=== PATIENT | female | born 1975 | race Caucasian/White ===

== ENCOUNTER 2017-08-18 08:41 | Emergency (ER) | payer OTHER ==
[2017-08-18] MEDS: PERCOCET 5MG/325MG TAB PO (09:33)
[2017-08-18] MEDS: ONDANSETRON 4 MG ORAL DISINTEGRATING TAB (Q0162 PER 1MG) PO (09:38)
== END 2017-08-18 10:19 | disposition home or self-care (01) ==
LOC: M ED 08:41
DX: S02.2XXA Fracture of nasal bones, initial encounter for closed fracture (principal); S01.511A Laceration without foreign body of lip, initial encounter; V43.52XA Car driver injured in collision with other type car in traffic accident, initial encounter; Y92.410 Unspecified street and highway as the place of occurrence of the external cause; Y93.9 Activity, unspecified; Y99.9 Unspecified external cause status
CPT/HCPCS: Q0162

== ENCOUNTER → 2018-05-25 | Outpatient (CLI) | payer BC ==
--- NOTE | 2018-05-25 17:55 | REP ---
Ultrasound-guided paracentesis The procedure was performed under the direct supervision of Dr. Greco. The risks and benefits of the procedure were explained to the patient and informed consent was obtained. The largest pocket of fluid was localized in the right flank using ultrasound guidance. The skin was prepped and draped in a sterile fashion. 1% lidocaine was used as a local anesthetic. An 8-Wolof multi side-hole catheter was inserted using trocar technique. 3950 ml of yellow fluid was withdrawn and discarded. The patient tolerated the procedure well and there were no immediate complications. After the appropriate amount of monitored convalescence the patient was discharged from the department. Reviewed by GUSTAVO Alonso 05/25/2018 04:52 P Electronically Signed by Karl Greco MD 05/25/2018 05:46 P
== END ==
LOC: M RADPRO 13:58 → MERGE 13:58
PROVIDERS: ATTEND Physician Assistant
DX: R18.0 Malignant ascites (principal); C56.1 Malignant neoplasm of right ovary; Z79.899 Other long term (current) drug therapy

== ENCOUNTER → 2018-06-02 | Outpatient (CLI) | payer BC ==
--- NOTE | 2018-06-02 19:34 | REP ---
Ultrasound-guided paracentesis The procedure was performed under the direct supervision of Dr. Kamara. The risks and benefits of the procedure were explained to the patient and informed consent was obtained. The largest pocket of fluid was localized in the right flank using ultrasound guidance. The skin was prepped and draped in a sterile fashion. 1% lidocaine was used as a local anesthetic. An 8-Azeri multi side-hole catheter was inserted using trocar technique. 4300 ml of yellow fluid was withdrawn and discarded. The patient tolerated the procedure well and there were no immediate complications. After the appropriate amount of monitored convalescence the patient was discharged from the department. Reviewed by GUSTAVO Alonso 06/02/2018 04:38 P Electronically Signed by Rah Kamara MD 06/02/2018 07:25 P
== END ==
LOC: M RADPRO 11:33 → MERGE 12:00
PROVIDERS: ATTEND Physician Assistant
DX: R18.0 Malignant ascites (principal); C56.9 Malignant neoplasm of unspecified ovary; Z79.899 Other long term (current) drug therapy

== ENCOUNTER → 2018-06-15 | Outpatient (CLI) | payer BC ==
[2018-06-15 13:20] LABS: BASO % 0.5 % (0.0-1.0); EOS # 0.1 10^3/uL (0.0-0.50); EOS % 1.4 % (0.0-3.0); HEMATOCRIT 34.7 % (36.0-47.0); HEMOGLOBIN 11.2 g/dl (12.0-15.5); LYMPH # 0.8 10^3/uL (1.5-4.5); LYMPH % 20.4 % (24.0-44.0); MEAN CORPUSCULAR HEMOGLOBIN 28.8 pg (27.0-33.0); MEAN CORPUSCULAR HGB CONC 32.3 g/dl (32.0-36.5); MEAN CORPUSCULAR VOLUME 89.2 fl (80.0-96.0); MONO # 0.4 10^3/uL (0.0-0.8); MONO % 11.4 % (0.0-5.0); NEUTROPHILS # 2.4 10^3/uL (1.8-7.7); NEUTROPHILS % 64.9 % (36.0-66.0); PLATELET COUNT, AUTOMATED 274 10^3/uL (150-450); RED BLOOD COUNT 3.89 10^6/uL (4.00-5.40); WHITE BLOOD COUNT 3.7 10^3/uL (4.0-10.0)
[2018-06-15 13:51] LABS: BLOOD UREA NITROGEN 14 MG/DL (7-18); CARBON DIOXIDE LEVEL 28 MEQ/L (21-32); CHLORIDE LEVEL 104 MEQ/L (98-107); CREATININE FOR GFR 0.57 MG/DL (0.55-1.30); GLOMERULAR FILTRATION RATE > 60.0 (>58); GLUCOSE, FASTING 88 MG/DL (70-100); POTASSIUM SERUM 4.3 MEQ/L (3.5-5.1); SODIUM LEVEL 140 MEQ/L (136-145)
[2018-06-15 13:52] LABS: BILIRUBIN,TOTAL 0.2 MG/DL (0.2-1.0); CALCIUM LEVEL 8.4 MG/DL (8.5-10.1)
[2018-06-16 10:02] LABS: CA 125 579.9 U/ML (<30.2)
== END ==
LOC: M SMT 11:16
PROVIDERS: ATTEND Obstetrics & Gynecology
DX: R97.1 Elevated cancer antigen 125 [CA 125] (principal); R19.00 Intra-abdominal and pelvic swelling, mass and lump, unspecified site; T36.3X5A Adverse effect of macrolides, initial encounter; C56.1 Malignant neoplasm of right ovary

== ENCOUNTER → 2018-07-06 | Outpatient (CLI) | payer BC ==
[2018-07-06 13:33] LABS: BASO % 0.6 % (0.0-1.0); EOS % 0.6 % (0.0-3.0); HEMATOCRIT 31.4 % (36.0-47.0); HEMOGLOBIN 10.2 g/dl (12.0-15.5); LYMPH # 0.6 10^3/uL (1.5-4.5); LYMPH % 34.3 % (24.0-44.0); MEAN CORPUSCULAR HEMOGLOBIN 29.3 pg (27.0-33.0); MEAN CORPUSCULAR HGB CONC 32.5 g/dl (32.0-36.5); MEAN CORPUSCULAR VOLUME 90.2 fl (80.0-96.0); MONO # 0.3 10^3/uL (0.0-0.8); MONO % 17.5 % (0.0-5.0); PLATELET COUNT, AUTOMATED 117 10^3/uL (150-450); RED BLOOD COUNT 3.48 10^6/uL (4.00-5.40)
[2018-07-06 14:05] LABS: BILIRUBIN,TOTAL 0.3 MG/DL (0.2-1.0); BLOOD UREA NITROGEN 15 MG/DL (7-18); CALCIUM LEVEL 8.9 MG/DL (8.5-10.1); CARBON DIOXIDE LEVEL 26 MEQ/L (21-32); CHLORIDE LEVEL 105 MEQ/L (98-107); CREATININE FOR GFR 0.72 MG/DL (0.55-1.30); GLOMERULAR FILTRATION RATE > 60.0 (>58); GLUCOSE, FASTING 96 MG/DL (70-100); POTASSIUM SERUM 4.3 MEQ/L (3.5-5.1); SODIUM LEVEL 140 MEQ/L (136-145)
[2018-07-06 14:26] LABS: NEUTROPHILS # 0.8 10^3/uL (1.8-7.7); WHITE BLOOD COUNT 1.7 10^3/uL (4.0-10.0)
[2018-07-07 10:20] LABS: CA 125 110.4 U/ML (<30.2)
== END ==
LOC: M SMT 11:02
PROVIDERS: ATTEND Obstetrics & Gynecology
DX: T36.3X5A Adverse effect of macrolides, initial encounter (principal); R19.00 Intra-abdominal and pelvic swelling, mass and lump, unspecified site; R97.1 Elevated cancer antigen 125 [CA 125]; C56.1 Malignant neoplasm of right ovary

== ENCOUNTER → 2018-07-07 | Outpatient (CLI) | payer BC ==
[2018-07-07 14:58] LABS: HEMATOCRIT 30.5 % (36.0-47.0); HEMOGLOBIN 9.8 g/dl (12.0-15.5); LYMPH # 0.6 10^3/uL (1.5-4.5); LYMPH % 32.6 % (24.0-44.0); MEAN CORPUSCULAR HEMOGLOBIN 29.4 pg (27.0-33.0); MEAN CORPUSCULAR HGB CONC 32.1 g/dl (32.0-36.5); MEAN CORPUSCULAR VOLUME 91.6 fl (80.0-96.0); MONO # 0.2 10^3/uL (0.0-0.8); MONO % 12.8 % (0.0-5.0); NEUTROPHILS % 54.1 % (36.0-66.0); PLATELET COUNT, AUTOMATED 127 10^3/uL (150-450); RED BLOOD COUNT 3.33 10^6/uL (4.00-5.40)
[2018-07-07 15:25] LABS: BILIRUBIN,TOTAL 0.2 MG/DL (0.2-1.0); BLOOD UREA NITROGEN 22 MG/DL (7-18); CALCIUM LEVEL 9.1 MG/DL (8.5-10.1); CARBON DIOXIDE LEVEL 29 MEQ/L (21-32); CHLORIDE LEVEL 106 MEQ/L (98-107); CREATININE FOR GFR 0.61 MG/DL (0.55-1.30); GLOMERULAR FILTRATION RATE > 60.0 (>58); GLUCOSE, FASTING 108 MG/DL (70-100); MAGNESIUM LEVEL 2.2 MG/DL (1.8-2.4); POTASSIUM SERUM 4.1 MEQ/L (3.5-5.1); SODIUM LEVEL 139 MEQ/L (136-145)
[2018-07-07 15:34] LABS: WHITE BLOOD COUNT 1.9 10^3/uL (4.0-10.0)
[2018-07-07 16:02] LABS: CA 125 100.2 U/ML (<30.2)
== END ==
LOC: M SMT 13:00
PROVIDERS: ATTEND Obstetrics & Gynecology
DX: C56.1 Malignant neoplasm of right ovary (principal); R19.00 Intra-abdominal and pelvic swelling, mass and lump, unspecified site; R97.1 Elevated cancer antigen 125 [CA 125]; T36.3X5A Adverse effect of macrolides, initial encounter

== ENCOUNTER 2018-11-23 10:04 | Outpatient (CLI) | payer BC ==
[~2018-11-23 10:04] MED LIST: ESTR1TAB PO; MOTR200T44 PO
[2018-11-23] MEDS ORDERED: ACET1TAB55 PO (10:26)
[2018-11-23 14:09] VITALS: BP 104/73
--- NOTE | 2018-11-23 15:21 | REP ---
Ultrasound-guided paracentesis The procedure was performed by GUSTAVO Elkins, under the direct supervision of Dr. Kamara. The risks and benefits of the procedure were explained to the patient and informed consent was obtained both verbally and written. Directly prior to the start of the procedure, a formal timeout was completed in the procedure room. Under ultrasound guidance, the largest pocket of fluid in the right flank was localized and skin was marked. The skin was then prepped and draped in a sterile fashion. 10 ml of 1% lidocaine was used as a local anesthetic. Using ultrasound guidance, an 8-Upper Sorbian multi side-hole catheter was inserted using trocar technique. 5,300 mL of clear yellow colored fluid was withdrawn and discarded. The patient tolerated the procedure well and there were no immediate complications. After the appropriate monitored convalescence the patient was discharged from the department. Reviewed by GUSTAVO Mcarthur 11/23/2018 01:02 P Electronically Signed by Rah Kamara MD 11/23/2018 03:12 P
== END 2018-11-23 11:20 | disposition home or self-care (01) ==
LOC: M IRPRO 10:04
PROVIDERS: ATTEND Radiology Diagnostic Radiology
DX: C56.1 Malignant neoplasm of right ovary (principal); R18.0 Malignant ascites

== ENCOUNTER → 2018-11-30 | Outpatient (CLI) | payer BC ==
[~2018-11-30] MED LIST changes: +ACET1TAB55 PO; +METO10TA2 PO; +METO5TAB2 PO; +MM S100C PO
[2018-11-30 10:36] VITALS: BP 114/68
--- NOTE | 2018-12-01 23:33 | REP ---
Ultrasound-guided paracentesis The procedure was performed under the direct supervision of Dr. Kendall. The risks and benefits of the procedure were explained to the patient and informed consent was obtained. The largest pocket of fluid was localized in the left flank using ultrasound guidance. The skin was prepped and draped in a sterile fashion. 1% lidocaine was used as a local anesthetic. Using ultrasound guidance an 8-South Sudanese multi side-hole catheter was inserted using trocar technique. 3300 ml of light jaime colored fluid was withdrawn and discarded. The patient tolerated the procedure well and there were no immediate complications. After the appropriate amount of monitored convalescence the patient was discharged from the department. Reviewed by GUSTAVO Alonso 11/30/2018 03:42 P Electronically Signed by Antelmo Kendall MD 12/01/2018 11:25 P
== END ==
LOC: M IRPRO 09:11
PROVIDERS: ATTEND Physician Assistant
DX: R18.8 Other ascites (principal)

== ENCOUNTER → 2018-12-08 | Outpatient (CLI) | payer BC ==
[~2018-12-08] MED LIST changes: -METO10TA2 PO; -METO5TAB2 PO; -MM S100C PO
[2018-12-08 09:37] VITALS: BP 111/75
--- NOTE | 2018-12-08 16:56 | REP ---
Ultrasound-guided paracentesis The procedure was performed under the direct supervision of Dr. Kendall. The risks and benefits of the procedure were explained to the patient and informed consent was obtained. The largest pocket of fluid was localized in the right flank using ultrasound guidance. The skin was prepped and draped in a sterile fashion. 1% lidocaine was used as a local anesthetic. Using ultrasound guidance an 8-Mozambican multi side-hole catheter was inserted using trocar technique. 2850 ml of jaime colored fluid was withdrawn and discarded. The patient tolerated the procedure well and there were no immediate complications. After the appropriate amount of monitored convalescence the patient was discharged from the department. Reviewed by GUSTAVO Alonso 12/08/2018 01:09 P Electronically Signed by Antelmo Kendall MD 12/08/2018 04:47 P
== END ==
LOC: M IRPRO 08:22
DX: C56.9 Malignant neoplasm of unspecified ovary (principal); R18.0 Malignant ascites

== ENCOUNTER → 2018-12-21 | Outpatient (CLI) | payer BC ==
[2018-12-21 11:57] VITALS: BP 122/56
--- NOTE | 2018-12-21 16:15 | REP ---
Ultrasound-guided paracentesis The procedure was performed by GUSTAVO Elkins, under the direct supervision of Dr. Kendall. The risks and benefits of the procedure were explained to the patient and informed consent was obtained both verbally and written. Directly prior to the start of the procedure, a formal timeout was completed in the procedure room. Under ultrasound guidance, the largest pocket of fluid in the right flank was localized and skin was marked. The skin was then prepped and draped in a sterile fashion. 10 ml of 1% lidocaine was used as a local anesthetic. Using ultrasound guidance, an 8-Mauritanian multi side-hole catheter was inserted using trocar technique. 3,600 mL of jaime colored fluid was withdrawn and discarded. The patient tolerated the procedure well and there were no immediate complications. After the appropriate monitored convalescence the patient was discharged from the department. Reviewed by GUSTAVO Mcarthur 12/21/2018 01:41 P Electronically Signed by Antelmo Kendall MD 12/21/2018 04:05 P
== END ==
LOC: M IRPRO 10:32
DX: R18.8 Other ascites (principal)

== ENCOUNTER → 2019-01-04 | Outpatient (CLI) | payer BC ==
[2019-01-04 12:35] VITALS: BP 100/67
--- NOTE | 2019-01-04 16:35 | REP ---
Ultrasound-guided paracentesis The procedure was performed under the direct supervision of Dr. Kendall. The risks and benefits of the procedure were explained to the patient and informed consent was obtained. The largest pocket of fluid was localized in the right flank using ultrasound guidance. The skin was prepped and draped in a sterile fashion. 1% lidocaine was used as a local anesthetic. An 8-Slovak multi side-hole catheter was inserted using trocar technique. 3900 ml of low viscosity red colored fluid was withdrawn and discarded. The patient tolerated the procedure well and there were no immediate complications. After the appropriate amount of monitored convalescence the patient was discharged from the department. Electronically Signed by GUSTAVO Alonso 01/04/2019 02:02 P Electronically Signed by Antelmo Kendall MD 01/04/2019 04:25 P
== END ==
LOC: M IRPRO 11:36
PROVIDERS: ATTEND Physician Assistant
DX: R18.8 Other ascites (principal)

== ENCOUNTER → 2019-01-15 | Outpatient (CLI) | payer BC ==
[~2019-01-15] MED LIST changes: +METO10TA2 PO; +METO5TAB2 PO; +MM S100C PO
[2019-01-15 14:58] VITALS: BP 109/80
--- NOTE | 2019-01-19 09:18 | REP ---
Ultrasound-guided paracentesis The procedure was performed under the direct supervision of Dr. Kendall. The risks and benefits of the procedure were explained to the patient and informed consent was obtained. The largest pocket of fluid was localized in the right flank using ultrasound guidance. The skin was prepped and draped in a sterile fashion. 1% lidocaine was used as a local anesthetic. An 8-Latvian multi side-hole catheter was inserted using trocar technique. 4200 ml of low viscosity red colored fluid was withdrawn and discarded. The patient tolerated the procedure well and there were no immediate complications. After the appropriate amount of monitored convalescence the patient was discharged from the department. Electronically Signed by GUSTAVO Alonso 01/15/2019 03:06 P Electronically Signed by Antelmo Kendall MD 01/19/2019 09:09 A
== END ==
LOC: M IRPRO 10:41
PROVIDERS: ATTEND Physician Assistant
DX: R18.8 Other ascites (principal)

== ENCOUNTER → 2019-01-26 | Outpatient (CLI) | payer BC ==
[2019-01-26 14:45] VITALS: BP 115/51
--- NOTE | 2019-01-26 17:33 | REP ---
Ultrasound-guided paracentesis The procedure was performed by GUSTAVO Elkins, under the direct supervision of Dr. Kendall. The risks and benefits of the procedure were explained to the patient and informed consent was obtained both verbally and written. Directly prior to the start of the procedure, a formal timeout was completed in the procedure room. Under ultrasound guidance, the largest pocket of fluid in the right flank was localized and skin was marked. The skin was then prepped and draped in a sterile fashion. 10 ml of 1% lidocaine was used as a local anesthetic. Using ultrasound guidance, an 8-Spanish multi side-hole catheter was inserted using trocar technique. 4,300 mL of red tinged colored fluid was withdrawn and discarded. The patient tolerated the procedure well and there were no immediate complications. After the appropriate monitored convalescence the patient was discharged from the department. Reviewed by GUSTAVO Mcarthur 01/26/2019 03:38 P Electronically Signed by Antelmo Kendall MD 01/26/2019 05:24 P
== END ==
LOC: M IRPRO 12:33
PROVIDERS: ATTEND Physician Assistant
DX: R18.8 Other ascites (principal)

== ENCOUNTER → 2019-02-03 | Outpatient (CLI) | payer BC ==
[2019-02-03 14:50] VITALS: BP 104/63
--- NOTE | 2019-02-04 14:41 | REP ---
ULTRASOUND-GUIDED PARACENTESIS The procedure was performed under the direct supervision of Dr. Kendall. The risks and benefits of the procedure were explained to the patient and informed consent was obtained. The largest pocket of fluid was localized in the right flank using ultrasound guidance. The skin was prepped and draped in a sterile fashion. 1% lidocaine was used as a local anesthetic. Using ultrasound guidance an 8-Solomon Islander multi side-hole catheter was inserted using trocar technique. 3200 ml of low viscosity red colored fluid was withdrawn and discarded. The patient tolerated the procedure well and there were no immediate complications. After the appropriate amount of monitored convalescence the patient was discharged from the department. Electronically Signed by GUSTAVO Alonso 02/03/2019 05:01 P Electronically Signed by Antelmo Kendall MD 02/04/2019 02:32 P
== END ==
LOC: M IRPRO 13:36
PROVIDERS: ATTEND Physician Assistant
DX: R18.8 Other ascites (principal)

== ENCOUNTER → 2019-02-05 | Outpatient (CLI) | payer BC ==
[2019-02-05 17:19] LABS: BASO % 0.6 % (0.0-1.0); EOS % 0.3 % (0.0-3.0); HEMATOCRIT 33.4 % (36.0-47.0); LYMPH # 0.4 10^3/uL (1.5-5.0); LYMPH % 12.2 % (24.0-44.0); MEAN CORPUSCULAR HEMOGLOBIN 27.2 pg (27.0-33.0); MEAN CORPUSCULAR HGB CONC 29.9 g/dl (32.0-36.5); MONO # 0.5 10^3/uL (0.0-0.8); MONO % 12.8 % (0.0-5.0); NEUTROPHILS # 2.7 10^3/uL (1.5-8.5); NEUTROPHILS % 73.5 % (36.0-66.0); PLATELET COUNT, AUTOMATED 409 10^3/uL (150-450); RED BLOOD COUNT 3.67 10^6/uL (4.00-5.40); WHITE BLOOD COUNT 3.6 10^3/uL (4.0-10.0)
[2019-02-05 17:31] LABS: INR 1.04; PARTIAL THROMBOPLASTIN TIME 28.6 SECONDS (25.0-38.4); PROTHROMBIN TIME 13.3 SECONDS (11.8-14.0)
== END ==
LOC: M SMT 13:40
PROVIDERS: ATTEND Physician Assistant
DX: R18.0 Malignant ascites (principal)

== ENCOUNTER → 2019-02-09 | Outpatient (CLI) | payer BC ==
[~2019-02-09] VITALS: Ht 157.5 cm; Wt 47.6 kg
[~2019-02-09] MED LIST changes: +LIDOCAINE 1% MDV 20ML VIAL As Ordered ONE; +MIDAZOLAM INJ 2 MG/2 ML VIAL (J2250) As Ordered ONE; +fentaNYL 100 MCG/2 ML INJECTION (J3010) As Ordered ONE
--- NOTE | 2019-02-09 16:29 | IRHP ---
[facility] IR Pre-Procedure H & P General Date of Service: Feb 09, 2019 Procedure: Same Day Surgery Interval History and Physical History of Present Illness Chief Complaint The patient is a 43-year-old female admitted with a reason for visit of Ascites. PRE-PROCEDURE DIAGNOSIS: malignant ascites HEART: normal rate. LUNGS: normal breathing at rest. ASA Classification ASA Classification: III-Severe systemic dis. Mallampati Score: I NPO: Yes Problems with prior sedation: No Obstructive Sleep Apnea: No Plan moderate sedation Allergies Coded Allergies: No Known Allergies (Unverified , 08/18/17) Home Medications Scheduled Docusate Sodium (Stool Softener), 100 MG PO DAILY, (Reported) Estradiol (Estradiol), 1 MG PO DAILY, (Reported) Ibuprofen (Motrin Ib), 400 MG PO Q4-6HP, (Reported) Scheduled PRN Acetaminophen (Acetaminophen), 325 MG PO Q4H PRN for PAIN, (Reported) Discontinued Medications Metoclopramide HCl (Metoclopramide HCl), 10 MG PO QID, (Reported) Discontinued Reason: Pt states not taking VS, I&O, 24H, Fishbone Vital Signs/I&O Vital Signs Date Time Temp Pulse Resp B/P (MAP) Pulse Ox O2 Delivery O2 Flow Rate FiO2 02/09/19 15:20 98.6 114 16 100 Room Air MICHAEL PERSAUD MD Feb 09, 2019 16:29
[2019-02-09 18:45] VITALS: BP 108/75
--- NOTE | 2019-02-09 19:26 | POST-OPPD ---
Postoperative Procedure Note Date Of Procedure: Feb 09, 2019 Time Of Procedure: 17:29 PREOPERATIVE DIAGNOSIS: malignant ascites POSTOPERATIVE DIAGNOSIS: malignant ascites FINDINGS: malignant ascites PROCEDURE: PleurX placement abdomen SURGEON: sis ANESTHESIA: mod sed ESTIMATED BLOOD LOSS: < 5 ml COMPLICATIONS: none POSTOPERATIVE CONDITION: stable MICHAEL PERSAUD MD Feb 09, 2019 19:26
--- NOTE | 2019-02-10 08:01 | REP ---
IR Ultrasound and fluoroscopy-guided abdominal PleurX placement. IR Ultrasound of the abdomen. IR Moderate sedation. Clinical information: End-stage cancer. Malignant recurrent ascites. Physician: Dr. Page. Procedure: The patient was advised of the benefits, risks, and alternatives of the procedure and informed consent was obtained. A time-out was performed with verification of the patient's name, MRN, site of procedure and type of procedure to be performed. The patient was positioned in the supine position on the angiographic table. The site was prepped and draped in the usual sterile fashion. Moderate sedation was performed by the physician including the presence of an independent trained observer who assisted and monitored the patient's level of consciousness and physiologic status. Following the administration of fentanyl and Versed , the physician spent 45 minutes of continuous face to face time with the patient. Limited ultrasound of the abdomen reveals moderate ascites. The anticipated puncture site was identified using sonographic guidance and the overlying skin and subcutaneous tissues were anesthetized with lidocaine. An 18 gauge needle was inserted under ultrasound guidance into the right lower quadrant quadrant. An Amplatz wire was advanced through the needle under fluoroscopy guidance into the peritoneum. The needle was removed and exchanged for a dilator, under fluoroscopy guidance. A small skin incision was made at the catheter insertion site. A second incision was made a small distance from original incision. The catheter was then subcutaneously tunneled from the exit site incision to the insertion site incision. The catheter insertion site was then serially dilated under fluoroscopy guidance and a peel-away sheath was then placed. The catheter was then passed through the peel-away sheath into the peritoneal cavity and the peel away sheath was removed. Placement in the peritoneal cavity was confirmed by return of ascetic fluid. 3 liters of ascitic fluid was drained. The dedicated catheter drainage cap was attached. The catheter insertion site was closed with Monocryl . A sterile dressing was applied. The patient tolerated the procedure well and was returned to the PRU in stable condition. EBL: < 5 ml. Complications: None. Conclusion: 1. Ultrasound abdomen demonstrates moderate ascites. 2. Successful placement of a tunneled peritoneal drainage catheter in the right lower quadrant. The patient requires dressing changes and drainage kit for drainage as-needed. Thank you for this referral. Electronically Signed by Arleen Page MD 02/10/2019 07:59 A
== END ==
LOC: M IRPRO 14:53
PROVIDERS: ATTEND Physician Assistant
DX: R18.0 Malignant ascites (principal); C56.1 Malignant neoplasm of right ovary; C48.2 Malignant neoplasm of peritoneum, unspecified
CPT/HCPCS: 49418; 99152; 99153; C1729; C1769; J2250; J3010